=== PATIENT | female | born 1980 | race Caucasian/White ===

== ENCOUNTER 2020-04-16 16:53 | Inpatient (IN) | payer BC, MEDICAID ==
[~2020-04-16] VITALS: Ht 165.1 cm; Wt 83.5 kg
[2020-04-16 18:18] LABS: Basophils # (auto) 0 10 ^3/uL (0-0.2); Eosinophils # (auto) 0 10 ^3/uL (0-0.8); Hematocrit 25.2 % (36.0-46.0); Monocytes # (auto) 0.3 10 ^3/uL (0-1.3); Neutrophils # (auto) 2.4 10 ^3/uL (1.6-8.6)
[2020-04-16 18:20] LABS: Basophils % (auto) 0.8 % (0.0-2.0); Lymphocytes # (auto) 1.9 10 ^3/uL (0.4-5.4); Lymphocytes % (auto) 40.2 % (10.0-50.0); Mean Corpuscular Hemoglobin 16.7 pg (28.0-32.0); Mean Corpuscular Volume 59.8 fL (80.0-100.0); Monocytes % (auto) 6.9 % (0.0-12.0); Neutrophils % (auto) 51.1 % (37.0-80.0); Nucleated Red Blood Cells % 0.1 %; Platelet Count (auto) 292 10^3/uL (140-450); Red Blood Cells 4.21 10^6/uL (4.0-5.20); White Blood Cell 4.7 10^3/uL (4.4-10.8)
[2020-04-16 18:22] LABS: Red Cell Distribution Width 20.2 % (11.8-14.3)
[2020-04-16 18:29] LABS: Albumin 3.4 g/dL (3.4-5.0); BUN/Creatinine Ratio 15.5; Calcium 8.3 mg/dL (8.5-10.1); Potassium 3.3 mmol/L (3.5-5.1)
[2020-04-16 18:31] LABS: Bilirubin, Total 0.2 mg/dL (0.2-1.0); Total Protein 7.5 g/dL (6.4-8.2)
[2020-04-16] MEDS ORDERED: SODIUM CHLORIDE 0.9% 500 ML IV ONE (18:46)
[2020-04-16 19:27] LABS: Urine Bacteria NONE SEEN /hpf (None Seen); Urine Blood Negative /uL (Negative); Urine Mucus FEW (None Seen); Urine Specific Gravity 1.032 (1.001-1.035); Urine WBC 21 /hpf (0 - 5)
[2020-04-16 19:30] LABS: INR 0.96 (0.9-1.15); Partial Thromboplastin Time 23.5 sec (23.64-32.05)
[2020-04-16] MEDS ORDERED: NITROGLYCERIN 0.4 MG SL TAB SL PRN ×2 (19:30→21:15)
[2020-04-16] MEDS ORDERED: cefTRIAXone 1GM/50ML D5W 50 ML IV ONE (19:30)
[2020-04-16] MEDS ORDERED: MORPHINE SULF INJ 2 MG/ML SYRINGE 1ML IV PRN ×3 (19:30→21:15)
[2020-04-16] MEDS ORDERED: CALCIUM W/VIT D (600MG/400IU) TAB PO ONE (19:30)
[2020-04-16 20:17] LABS: Albumin 3.4 g/dL (3.4-5.0); BUN/Creatinine Ratio 17.6; Calcium 8.2 mg/dL (8.5-10.1); Potassium 3.5 mmol/L (3.5-5.1)
[2020-04-16 20:20] LABS: Bilirubin, Total 0.2 mg/dL (0.2-1.0); Total Protein 7.3 g/dL (6.4-8.2)
[2020-04-16] MEDS ORDERED: CEFTRIAXONE SODIUM 2 GM in D5W 5% 50 ML IV ONE (21:15)
[2020-04-16] MEDS ORDERED: ALUM & MAG HYDROX-SIMETH LIQ(MAALOX) 30 ML PO PRN (21:15)
[2020-04-16] MEDS ORDERED: HYDROcodone-ACET 5/325MG TAB PO PRN (21:15)
[2020-04-16] MEDS ORDERED: ONDANSETRON HCL 4 MG/2 ML VIAL IV PRN (21:15)
[2020-04-16] MEDS ORDERED: FERROUS SULFATE 325 MG TAB PO ONE (21:15)
[2020-04-16] MEDS ORDERED: LORazepam 0.5 MG TAB PO PRN (21:15)
[2020-04-16 21:30] VITALS: BP 135/88
[2020-04-16 21:47] LABS: Cholesterol 180 mg/dL (< 200)
[2020-04-16 21:50] LABS: HDL Cholesterol 56 mg/dL (40-59); LDL Cholesterol 101 mg/dL (< 100); Triglycerides 263 mg/dL (< 150)
[2020-04-16 22:23] VITALS: BP 135/88
[2020-04-16] MEDS: SOD CHL 0.9%/ KCL 40MEQ 1,000 ML IV SCH (23:14)
[2020-04-17] VITALS (7 sets, daily range): BP systolic 91–114; BP diastolic 48–61
[2020-04-17] MEDS: SOD CHL 0.9%/ KCL 40MEQ 1,000 ML IV SCH ×3 (03:50→21:40)
[2020-04-17 06:19] LABS: Basophils # (auto) 0 10 ^3/uL (0-0.2); Monocytes # (auto) 0.4 10 ^3/uL (0-1.3); Neutrophils # (auto) 2.7 10 ^3/uL (1.6-8.6)
[2020-04-17 06:21] LABS: Basophils % (auto) 0.4 % (0.0-2.0); Eosinophils # (auto) 0 10 ^3/uL (0-0.8); Eosinophils % (auto) 0.9 % (0.0-7.0); Lymphocytes % (auto) 38.6 % (10.0-50.0); Mean Corpuscular Hemoglobin 17.1 pg (28.0-32.0); Mean Corpuscular Hgb Conc. 28.5 g/dL (32.0-36.0); Monocytes % (auto) 7.3 % (0.0-12.0); Neutrophils % (auto) 52.8 % (37.0-80.0); Platelet Count (auto) 239 10^3/uL (140-450); Red Blood Cells 3.51 10^6/uL (4.0-5.20); White Blood Cell 5.2 10^3/uL (4.4-10.8)
[2020-04-17 06:26] LABS: Red Cell Distribution Width 20.6 % (11.8-14.3)
[2020-04-17 06:27] LABS: Potassium 3.8 mmol/L (3.5-5.1)
[2020-04-17 06:29] LABS: INR 1.05 (0.9-1.15)
[2020-04-17 06:33] LABS: Albumin 2.9 g/dL (3.4-5.0); BUN/Creatinine Ratio 20.6; Bilirubin, Total 0.2 mg/dL (0.2-1.0); Calcium 7.7 mg/dL (8.5-10.1); Magnesium 2.4 mg/dL (1.6-2.6); Total Protein 6.3 g/dL (6.4-8.2)
[2020-04-17] MEDS: FERROUS SULFATE 325 MG TAB PO SCH ×3 (08:40→17:23)
[2020-04-17] MEDS: CALCIUM W/VIT D (600MG/400IU) TAB PO SCH ×2 (08:40→17:22)
[2020-04-17] MEDS: cefTRIAXone 1GM/50ML D5W 50 ML IV SCH (08:41)
[2020-04-17] MEDS: PANTOPRAZOLE 40 MG TAB PO SCH (10:22)
[2020-04-17] MEDS ORDERED: METOCLOPRAMIDE HCL 5MG/ml INJ 2ml VIAL IV ONE (10:30)
[2020-04-17] MEDS ORDERED: SODIUM CHLORIDE LOCK 10 ML ONE (10:59)
[2020-04-17] MEDS ORDERED: diphenhdrAMINE HCL 50 MG/1 ML VL ONE (10:59)
[2020-04-17] MEDS ORDERED: LIDOCAINE VISCOUS 2% 15ML UD ONE (10:59)
[2020-04-17] MEDS: fentaNYL CITRATE 100 MCG/2 ML VL ONE ×2 (13:35→13:38)
[2020-04-17] MEDS: MIDAZOLAM HCL 5 MG/ML-1ML VIAL ONE ×3 (13:35→13:40)
[2020-04-17] MEDS ORDERED: Ensure HIGH Protein Chocolate 8oz Bottle PO SCH (18:00)
[2020-04-17 18:07] LABS: Urine Bacteria NONE SEEN /hpf (None Seen); Urine Blood Negative /uL (Negative); Urine Mucus FEW (None Seen); Urine Specific Gravity 1.012 (1.001-1.035); Urine WBC 5 /hpf (0 - 5)
[2020-04-17 18:08] LABS: Alcohol, Urine < 3.0 mg/dL (0-10); Amphetamine Screen, Urine NEGATIVE (NEGATIVE); Barbiturate Scree,Urine NEGATIVE (NEGATIVE); Benzodiazephine Screen, Urine POSITIVE (NEGATIVE); Cannabinoid Screen, Urine NEGATIVE (NEGATIVE); Cocaine Screen, Urine NEGATIVE (NEGATIVE); Opiate Scree,Urine NEGATIVE (NEGATIVE); Phencyclidine Screen, Urine NEGATIVE (NEGATIVE)
[2020-04-17 19:05] LABS: Hematocrit 26.4 % (36.0-46.0); Hemoglobin 7.6 g/dL (12.2-16.2)
[2020-04-18 05:00] VITALS: BP 93/50
[2020-04-18 06:10] LABS: Basophils # (auto) 0 10 ^3/uL (0-0.2); Eosinophils # (auto) 0.1 10 ^3/uL (0-0.8); Hemoglobin 7.6 g/dL (12.2-16.2); Monocytes # (auto) 0.3 10 ^3/uL (0-1.3); White Blood Cell 3.9 10^3/uL (4.4-10.8)
[2020-04-18 06:13] LABS: Basophils % (auto) 0.5 % (0.0-2.0); Eosinophils % (auto) 2.3 % (0.0-7.0); Hematocrit 25.8 % (36.0-46.0); Lymphocytes # (auto) 1.4 10 ^3/uL (0.4-5.4); Lymphocytes % (auto) 36.7 % (10.0-50.0); Mean Corpuscular Hemoglobin 18.5 pg (28.0-32.0); Mean Corpuscular Hgb Conc. 29.6 g/dL (32.0-36.0); Mean Corpuscular Volume 62.4 fL (80.0-100.0); Monocytes % (auto) 8.5 % (0.0-12.0); Nucleated Red Blood Cells % 0.1 %; Platelet Count (auto) 228 10^3/uL (140-450); Red Blood Cells 4.13 10^6/uL (4.0-5.20)
[2020-04-18 06:16] LABS: Red Cell Distribution Width 23.4 % (11.8-14.3)
[2020-04-18 06:26] LABS: Potassium 4.1 mmol/L (3.5-5.1)
[2020-04-18 06:33] LABS: BUN/Creatinine Ratio 9.3; Calcium 8.1 mg/dL (8.5-10.1)
[2020-04-18 09:00] VITALS: BP 112/68
[2020-04-18] MEDS: SOD CHL 0.9%/ KCL 40MEQ 1,000 ML IV SCH (09:12)
[2020-04-18] MEDS: CALCIUM W/VIT D (600MG/400IU) TAB PO SCH (09:16)
[2020-04-18] MEDS: cefTRIAXone 1GM/50ML D5W 50 ML IV SCH (09:16)
[2020-04-18] MEDS: FERROUS SULFATE 325 MG TAB PO SCH (09:16)
[2020-04-18] MEDS: PANTOPRAZOLE 40 MG TAB PO SCH (09:20)
[2020-04-18 14:00] VITALS: BP 115/71
[2020-04-18 14:12] VITALS: BP 112/68
== END 2020-04-18 16:35 | disposition home or self-care (01) | DRG 392 ==
LOC: ER 16:53 → TELE 16:54 → TELE-WESTW 21:15
PROVIDERS: ADMIT Hospitalist; ATTEND Internal Medicine
PROC: 0DB88ZX Excision of Small Intestine, Via Natural or Artificial Opening Endoscopic, Diagnostic (ICD-10-PCS; 2020-04-17)
PROC: 0DB68ZX Excision of Stomach, Via Natural or Artificial Opening Endoscopic, Diagnostic (ICD-10-PCS; principal; 2020-04-17 13:31)
DX: K29.00 Acute gastritis without bleeding (principal); N10 Acute pyelonephritis; E44.0 Moderate protein-calorie malnutrition; D50.9 Iron deficiency anemia, unspecified; N92.0 Excessive and frequent menstruation with regular cycle; E87.6 Hypokalemia; E83.51 Hypocalcemia; F17.210 Nicotine dependence, cigarettes, uncomplicated; K21.9 Gastro-esophageal reflux disease without esophagitis; E66.9 Obesity, unspecified; Z68.30 Body mass index [BMI] 30.0-30.9, adult; Z90.49 Acquired absence of other specified parts of digestive tract
CPT/HCPCS: 36415; 70450; 76856; 80048; 80053; 80061; 80307; 81001; 81025; 82378; 82962; 83036; 83735; 84100; 84443; 85014; 85018; 85025; 85610; 85730; 86850; 86900; 86901; 86920; 87086; G0378; J0696; J2250; J7060

== ENCOUNTER → 2020-06-02 | Outpatient (CLI) | payer BC, MEDICAID ==
[2020-06-02 09:05] LABS: Basophils # (auto) 0 10 ^3/uL (0-0.2); Lymphocytes % (auto) 42.4 % (10.0-50.0); Mean Corpuscular Hemoglobin 18.3 pg (28.0-32.0); Monocytes # (auto) 0.2 10 ^3/uL (0-1.3); Neutrophils # (auto) 1.3 10 ^3/uL (1.6-8.6); White Blood Cell 2.7 10^3/uL (4.4-10.8)
[2020-06-02 09:07] LABS: Basophils % (auto) 1.1 % (0.0-2.0); Eosinophils # (auto) 0 10 ^3/uL (0-0.8); Eosinophils % (auto) 0.9 % (0.0-7.0); Hematocrit 27.9 % (36.0-46.0); Hemoglobin 8.2 g/dL (12.2-16.2); Lymphocytes # (auto) 1.2 10 ^3/uL (0.4-5.4); Mean Corpuscular Hgb Conc. 29.2 g/dL (32.0-36.0); Mean Corpuscular Volume 62.8 fL (80.0-100.0); Monocytes % (auto) 6.7 % (0.0-12.0); Neutrophils % (auto) 48.9 % (37.0-80.0); Nucleated Red Blood Cells % 0.1 %; Platelet Count (auto) 265 10^3/uL (140-450); Red Blood Cells 4.45 10^6/uL (4.0-5.20)
[2020-06-02 09:10] LABS: Red Cell Distribution Width 23.6 % (11.8-14.3)
[2020-06-02 09:11] LABS: Urine Bacteria NONE SEEN /hpf (None Seen); Urine Blood Negative /uL (Negative); Urine Mucus FEW (None Seen); Urine Specific Gravity 1.028 (1.001-1.035); Urine WBC 1 /hpf (0 - 5)
[2020-06-02 09:22] LABS: Albumin 3.5 g/dL (3.4-5.0); Calcium 8.5 mg/dL (8.5-10.1); Potassium 3.4 mmol/L (3.5-5.1)
[2020-06-02 09:27] LABS: Bilirubin, Total 0.2 mg/dL (0.2-1.0); Total Protein 7.5 g/dL (6.4-8.2)
[2020-06-02 09:36] LABS: Folate (Folic Acid) 10.19 ng/mL (5.38-24)
== END | disposition home or self-care (01) ==
LOC: LAB 08:45
PROVIDERS: ATTEND Nurse Practitioner
DX: E78.5 Hyperlipidemia, unspecified (principal); I10 Essential (primary) hypertension
CPT/HCPCS: 36415; 80053; 80061; 81001; 82607; 82746; 83036; 84443; 85025

== ENCOUNTER → 2020-07-10 | Outpatient (CLI) | payer BC, MEDICAID ==
[2020-07-10 11:25] LABS: Hemoglobin 8.7 g/dL (12.2-16.2); Mean Corpuscular Hemoglobin 19.3 pg (28.0-32.0)
[2020-07-10 11:27] LABS: Hematocrit 29.3 % (36.0-46.0); Mean Corpuscular Hgb Conc. 29.6 g/dL (32.0-36.0); Mean Corpuscular Volume 65.2 fL (80.0-100.0); Platelet Count (auto) 260 10^3/uL (140-450); Red Blood Cells 4.49 10^6/uL (4.0-5.20); White Blood Cell 3.8 10^3/uL (4.4-10.8)
[2020-07-10 12:26] LABS: Basophils % (manual) 0 (0.0-2.0); Blast Cells 0; Metamyelocytes % 0; Myelocytes % 0; Promyelocytes % 0; Reactive Lymphocytes 0
[2020-07-10 12:27] LABS: Potassium 3.2 mmol/L (3.5-5.1)
[2020-07-10 12:29] LABS: Band Neutrophils % (manual) 2; Eosinophils % (manual) 1 (0-7); Lymphocytes % (manual) 42 (10.0-50.0); Monocytes % (manual) 4 (0-12)
[2020-07-10 12:54] LABS: Albumin 3.5 g/dL (3.4-5.0); BUN/Creatinine Ratio 13.5; Bilirubin, Total 0.2 mg/dL (0.2-1.0); Calcium 8.7 mg/dL (8.5-10.1); Total Protein 7.3 g/dL (6.4-8.2)
[2020-07-10 14:10] LABS: % Iron Saturation 4.3 % (15-50)
== END | disposition home or self-care (01) ==
LOC: LAB 10:46
PROVIDERS: ATTEND Internal Medicine Gastroenterology
DX: D64.9 Anemia, unspecified (principal)
CPT/HCPCS: 36415; 80053; 82378; 83540; 83550; 85007; 85025; 85027; 86677

== ENCOUNTER 2020-08-07 09:56 | Day surgery (SDC) | payer BC, MEDICAID ==
[2020-08-04 15:20] LABS: Basophils # (auto) 0 10 ^3/uL (0-0.2); Basophils % (auto) 0.3 % (0.0-2.0); Eosinophils # (auto) 0.1 10 ^3/uL (0-0.8); Hemoglobin 8.8 g/dL (12.2-16.2); Lymphocytes # (auto) 1.5 10 ^3/uL (0.4-5.4); Monocytes # (auto) 0.4 10 ^3/uL (0-1.3); Neutrophils # (auto) 2.6 10 ^3/uL (1.6-8.6)
[2020-08-04 15:22] LABS: Eosinophils % (auto) 1.6 % (0.0-7.0); Hematocrit 29.7 % (36.0-46.0); Mean Corpuscular Hemoglobin 19.5 pg (28.0-32.0); Mean Corpuscular Hgb Conc. 29.7 g/dL (32.0-36.0); Mean Corpuscular Volume 65.5 fL (80.0-100.0); Monocytes % (auto) 8.6 % (0.0-12.0); Neutrophils % (auto) 56.5 % (37.0-80.0); Nucleated Red Blood Cells % 0.1 %; Platelet Count (auto) 281 10^3/uL (140-450); Red Blood Cells 4.53 10^6/uL (4.0-5.20); White Blood Cell 4.6 10^3/uL (4.4-10.8)
[2020-08-04 15:36] LABS: Partial Thromboplastin Time 24.8 sec (23.0-31.2)
[2020-08-04 15:41] LABS: Red Cell Distribution Width 21.4 % (11.8-14.3)
[~2020-08-07] VITALS: Ht 162.6 cm; Wt 77.1 kg
[2020-08-07] MEDS ORDERED: SODIUM CHLORIDE LOCK 10 ML ONE (10:39)
[2020-08-07] MEDS: fentaNYL CITRATE 100 MCG/2 ML VL ONE ×2 (12:06→12:08)
[2020-08-07] MEDS: diphenhdrAMINE HCL 50 MG/1 ML VL ONE ×2 (12:06→12:11)
[2020-08-07] MEDS: MIDAZOLAM HCL 5 MG/ML-1ML VIAL ONE ×3 (12:06→12:11)
[2020-08-07 12:45] VITALS: BP 109/64
== END 2020-08-07 12:55 | disposition home or self-care (01) ==
LOC: GI 09:56
PROVIDERS: ATTEND Internal Medicine Gastroenterology
DX: D50.9 Iron deficiency anemia, unspecified (principal); K64.8 Other hemorrhoids; K63.89 Other specified diseases of intestine; I20.9 Angina pectoris, unspecified; E66.9 Obesity, unspecified; Z68.29 Body mass index [BMI] 29.0-29.9, adult; Z79.899 Other long term (current) drug therapy; Z20.828 Contact with and (suspected) exposure to other viral communicable diseases
CPT/HCPCS: 36415; 45380; 84702; 85025; 85610; 85730; 88305; J1200; J2250; J3010; J7030; U0003; 99152

== ENCOUNTER 2020-08-23 18:29 | Emergency (ER) | payer BC, MEDICAID ==
[~2020-08-23] VITALS: Ht 162.6 cm; Wt 77.1 kg
[2020-08-23 23:07] LABS: Basophils # (auto) 0 10 ^3/uL (0-0.2); Hematocrit 28.8 % (36.0-46.0); Hemoglobin 8.7 g/dL (12.2-16.2); Mean Corpuscular Hgb Conc. 30.2 g/dL (32.0-36.0); Monocytes # (auto) 0.4 10 ^3/uL (0-1.3); Nucleated Red Blood Cells % 0.1 %
[2020-08-23 23:11] LABS: Basophils % (auto) 0.2 % (0.0-2.0); Eosinophils # (auto) 0.1 10 ^3/uL (0-0.8); Eosinophils % (auto) 1.1 % (0.0-7.0); Lymphocytes % (auto) 37.1 % (10.0-50.0); Mean Corpuscular Hemoglobin 19.2 pg (28.0-32.0); Mean Corpuscular Volume 63.6 fL (80.0-100.0); Monocytes % (auto) 7.2 % (0.0-12.0); Neutrophils % (auto) 54.4 % (37.0-80.0); Platelet Count (auto) 342 10^3/uL (140-450); Red Blood Cells 4.53 10^6/uL (4.0-5.20); White Blood Cell 5.5 10^3/uL (4.4-10.8)
[2020-08-23 23:28] LABS: Alanine Aminotransferase 16 U/L (13-56); Albumin 3.6 g/dL (3.4-5.0); Anion Gap 7 (5-15); Aspartate Aminotransferase 10 U/L (15-37); BUN/Creatinine Ratio 18.9; Blood Urea Nitrogen 10 mg/dL (7-18); Carbon Dioxide 24 mmol/L (21-32); Chloride 109 mmol/L (98-107); GFR African American 163 mL/min; GFR Non-African American 135 mL/min; Glucose 81 mg/dL (74-106); Potassium 3.6 mmol/L (3.5-5.1); Sodium 140 mmol/L (136-145)
[2020-08-23 23:30] LABS: Red Cell Distribution Width 20.4 % (11.8-14.3)
[2020-08-23 23:32] LABS: Alkaline Phosphatase 104 U/L (45-117); Bilirubin, Total 0.2 mg/dL (0.2-1.0); Total Protein 7.7 g/dL (6.4-8.2)
[2020-08-23 23:36] LABS: INR 0.98 (0.9-1.15); Partial Thromboplastin Time 23.6 sec (23.0-31.2)
[2020-08-24 00:30] VITALS: BP 115/78
== END 2020-08-24 01:00 | disposition home or self-care (01) ==
LOC: ER 18:29
DX: J06.9 Acute upper respiratory infection, unspecified (principal); Z20.828 Contact with and (suspected) exposure to other viral communicable diseases; F17.210 Nicotine dependence, cigarettes, uncomplicated
CPT/HCPCS: 36415; 71045; 80053; 84484; 85025; 85610; 85730; 99284; J7030

== ENCOUNTER → 2020-09-11 | Day surgery (SDC) | payer BC, MEDICAID ==
[2020-08-10 11:16] LABS: Basophils # (auto) 0 10 ^3/uL (0-0.2); Eosinophils # (auto) 0.1 10 ^3/uL (0-0.8); Hemoglobin 8.5 g/dL (12.2-16.2); Lymphocytes # (auto) 0.8 10 ^3/uL (0.4-5.4); Mean Corpuscular Hemoglobin 19.6 pg (28.0-32.0); Monocytes # (auto) 0.3 10 ^3/uL (0-1.3); Monocytes % (auto) 9.4 % (0.0-12.0)
[2020-08-10 11:18] LABS: Basophils % (auto) 0.5 % (0.0-2.0); Eosinophils % (auto) 2.1 % (0.0-7.0); Hematocrit 28.3 % (36.0-46.0); Lymphocytes % (auto) 25.3 % (10.0-50.0); Mean Corpuscular Volume 65.2 fL (80.0-100.0); Neutrophils % (auto) 62.7 % (37.0-80.0); Nucleated Red Blood Cells % 0.1 %; Platelet Count (auto) 277 10^3/uL (140-450); Red Blood Cells 4.34 10^6/uL (4.0-5.20); White Blood Cell 3.1 10^3/uL (4.4-10.8)
[2020-08-10 11:19] LABS: Urine Bacteria FEW /hpf (None Seen); Urine Blood TRACE /uL (Negative); Urine Mucus FEW (None Seen); Urine Specific Gravity 1.029 (1.001-1.035); Urine WBC 4 /hpf (0 - 5)
[2020-08-10 11:22] LABS: Red Cell Distribution Width 21.1 % (11.8-14.3)
[2020-08-10 11:30] LABS: Partial Thromboplastin Time 23.6 sec (23.0-31.2)
[2020-08-10 11:45] LABS: Albumin 3.4 g/dL (3.4-5.0); Calcium 8.8 mg/dL (8.5-10.1); Potassium 3.2 mmol/L (3.5-5.1)
[2020-08-10 11:48] LABS: BUN/Creatinine Ratio 10.5; Bilirubin, Total 0.2 mg/dL (0.2-1.0); Total Protein 7.6 g/dL (6.4-8.2)
[2020-09-07 14:45] LABS: Basophils # (auto) 0 10 ^3/uL (0-0.2); Hematocrit 24.5 % (36.0-46.0); Monocytes # (auto) 0.3 10 ^3/uL (0-1.3); Neutrophils # (auto) 2.2 10 ^3/uL (1.6-8.6); White Blood Cell 4.1 10^3/uL (4.4-10.8)
[2020-09-07 14:47] LABS: Basophils % (auto) 0.4 % (0.0-2.0); Eosinophils # (auto) 0 10 ^3/uL (0-0.8); Eosinophils % (auto) 1.1 % (0.0-7.0); Hemoglobin 7.5 g/dL (12.2-16.2); Lymphocytes # (auto) 1.6 10 ^3/uL (0.4-5.4); Lymphocytes % (auto) 37.7 % (10.0-50.0); Mean Corpuscular Hemoglobin 19.9 pg (28.0-32.0); Mean Corpuscular Hgb Conc. 30.6 g/dL (32.0-36.0); Monocytes % (auto) 6.5 % (0.0-12.0); Neutrophils % (auto) 54.3 % (37.0-80.0); Nucleated Red Blood Cells % 0.1 %; Platelet Count (auto) 288 10^3/uL (140-450); Red Blood Cells 3.76 10^6/uL (4.0-5.20)
[2020-09-07 15:02] LABS: INR 0.99 (0.9-1.15); Partial Thromboplastin Time 22.8 sec (23.0-31.2)
[2020-09-07 15:06] LABS: Urine Bacteria NONE SEEN /hpf (None Seen); Urine Blood 1+ /uL (Negative); Urine Hyaline Cast FEW /lpf (0 - 2); Urine Mucus FEW (None Seen); Urine Specific Gravity 1.032 (1.001-1.035); Urine WBC 11 /hpf (0 - 5)
[2020-09-07 15:13] LABS: Red Cell Distribution Width 20.1 % (11.8-14.3)
[2020-09-07 15:47] LABS: Albumin 3.5 g/dL (3.4-5.0); Calcium 8.4 mg/dL (8.5-10.1); Potassium 3.3 mmol/L (3.5-5.1)
[2020-09-07 15:51] LABS: Bilirubin, Total 0.1 mg/dL (0.2-1.0); Total Protein 7.2 g/dL (6.4-8.2)
[~2020-09-11] VITALS: Ht 162.6 cm; Wt 79.4 kg
[~2020-09-11] MED LIST: AMOX500C2 PO; HYDROmorphone HCL 2 MG/ML VL IV PRN; IBUP800T24 PO; LACTATED RINGER'S 1,000 ML IV SCH; MEPERIDINE HCL (25 MG/ML) 1ML VIAL ONE; METOCLOPRAMIDE HCL 5MG/ml INJ 2ml VIAL IV PRN; MIDAZOLAM HCL 1MG/1ML-2 ML VIAL ONE; MORPHINE SULFATE 4 MG/ML SYR/VIAL IV PRN; ONDANSETRON HCL 4 MG/2 ML VIAL IV PRN; ONDANSETRON HCL 4 MG/2 ML VIAL ONE; PROPOFOL 10 MG/ML 20 ML IV ONE; SILVER SULFADIAZINE 1 % TOPICAL CREAM 50GM TOP ONE; SODIUM CHLORIDE LOCK 10 ML ONE; ceFAZolin 1GM/50ML 50 ML IV ONE; fentaNYL CITRATE 100 MCG/2 ML VL ONE
[2020-09-11 08:56] LABS: Basophils # (auto) 0 10 ^3/uL (0-0.2); Eosinophils # (auto) 0 10 ^3/uL (0-0.8); Hemoglobin 7.5 g/dL (12.2-16.2); Mean Corpuscular Hemoglobin 19.3 pg (28.0-32.0); Neutrophils # (auto) 1.6 10 ^3/uL (1.6-8.6); Platelet Count (auto) 274 10^3/uL (140-450); White Blood Cell 2.9 10^3/uL (4.4-10.8)
[2020-09-11 08:59] LABS: Basophils % (auto) 0.3 % (0.0-2.0); Eosinophils % (auto) 1.7 % (0.0-7.0); Hematocrit 25.1 % (36.0-46.0); Lymphocytes % (auto) 33.6 % (10.0-50.0); Mean Corpuscular Hgb Conc. 29.9 g/dL (32.0-36.0); Mean Corpuscular Volume 64.6 fL (80.0-100.0); Monocytes # (auto) 0.3 10 ^3/uL (0-1.3); Monocytes % (auto) 8.7 % (0.0-12.0); Neutrophils % (auto) 55.7 % (37.0-80.0); Red Blood Cells 3.89 10^6/uL (4.0-5.20)
[2020-09-11 13:04] LABS: Basophils # (auto) 0 10 ^3/uL (0-0.2); Eosinophils # (auto) 0 10 ^3/uL (0-0.8); Mean Corpuscular Hemoglobin 20.1 pg (28.0-32.0); Monocytes # (auto) 0.1 10 ^3/uL (0-1.3); Neutrophils # (auto) 1.6 10 ^3/uL (1.6-8.6); Platelet Count (auto) 245 10^3/uL (140-450); Red Blood Cells 3.98 10^6/uL (4.0-5.20); White Blood Cell 2.8 10^3/uL (4.4-10.8)
[2020-09-11 13:08] LABS: Basophils % (auto) 0.5 % (0.0-2.0); Eosinophils % (auto) 1.2 % (0.0-7.0); Hematocrit 26.3 % (36.0-46.0); Lymphocytes % (auto) 35.9 % (10.0-50.0); Mean Corpuscular Hgb Conc. 30.4 g/dL (32.0-36.0); Mean Corpuscular Volume 66.1 fL (80.0-100.0); Monocytes % (auto) 4.9 % (0.0-12.0); Neutrophils % (auto) 57.5 % (37.0-80.0); Nucleated Red Blood Cells % 0.3 %; Red Cell Distribution Width 19.5 % (11.8-14.3)
[2020-09-11 14:30] VITALS: BP 126/87
== END | disposition home or self-care (01) ==
LOC: SUR 07:32
PROVIDERS: ATTEND Specialist
DX: N92.0 Excessive and frequent menstruation with regular cycle (principal); D28.0 Benign neoplasm of vulva; D25.9 Leiomyoma of uterus, unspecified; D64.9 Anemia, unspecified; E66.9 Obesity, unspecified; I20.9 Angina pectoris, unspecified; Z90.49 Acquired absence of other specified parts of digestive tract; Z79.899 Other long term (current) drug therapy; Z98.890 Other specified postprocedural states; Z20.828 Contact with and (suspected) exposure to other viral communicable diseases; Z68.30 Body mass index [BMI] 30.0-30.9, adult
CPT/HCPCS: 11421; 36415; 36430; 58558; 80053; 81001; 84702; 85025; 85610; 85730; 86850; 86900; 86901; 86920; 87086; 87426; 88305; 88342; J0690; J2175; J2250; J2405; J2704; J3010; P9016; U0003

== ENCOUNTER → 2020-11-05 | Outpatient (CLI) | payer BC, MEDICAID ==
[~2020-11-05] MED LIST changes: -HYDROmorphone HCL 2 MG/ML VL IV PRN; -LACTATED RINGER'S 1,000 ML IV SCH; -MEPERIDINE HCL (25 MG/ML) 1ML VIAL ONE; -METOCLOPRAMIDE HCL 5MG/ml INJ 2ml VIAL IV PRN; -MIDAZOLAM HCL 1MG/1ML-2 ML VIAL ONE; -MORPHINE SULFATE 4 MG/ML SYR/VIAL IV PRN; -ONDANSETRON HCL 4 MG/2 ML VIAL IV PRN; -ONDANSETRON HCL 4 MG/2 ML VIAL ONE; -PROPOFOL 10 MG/ML 20 ML IV ONE; -SILVER SULFADIAZINE 1 % TOPICAL CREAM 50GM TOP ONE; -SODIUM CHLORIDE LOCK 10 ML ONE; -ceFAZolin 1GM/50ML 50 ML IV ONE; -fentaNYL CITRATE 100 MCG/2 ML VL ONE
[2020-11-05 12:30] LABS: Basophils # (auto) 0 10 ^3/uL (0-0.2); Basophils % (auto) 0.4 % (0.0-2.0); Eosinophils # (auto) 0 10 ^3/uL (0-0.8); Eosinophils % (auto) 1.1 % (0.0-7.0); Hematocrit 28.9 % (36.0-46.0); Hemoglobin 8.8 g/dL (12.2-16.2); Lymphocytes # (auto) 1.3 10 ^3/uL (0.4-5.4); Mean Corpuscular Hemoglobin 20.1 pg (28.0-32.0); Mean Corpuscular Hgb Conc. 30.4 g/dL (32.0-36.0); Mean Corpuscular Volume 66.2 fL (80.0-100.0); Monocytes # (auto) 0.3 10 ^3/uL (0-1.3); Monocytes % (auto) 8.5 % (0.0-12.0); Nucleated Red Blood Cells % 0.1 %; Platelet Count (auto) 298 10^3/uL (140-450); Red Blood Cells 4.36 10^6/uL (4.0-5.20); Red Cell Distribution Width 20.4 % (11.8-14.3); White Blood Cell 3.6 10^3/uL (4.4-10.8)
== END | disposition home or self-care (01) ==
LOC: LAB 12:04
PROVIDERS: ATTEND Specialist
DX: N92.0 Excessive and frequent menstruation with regular cycle (principal)
CPT/HCPCS: 36415; 84443; 85025

== ENCOUNTER → 2021-02-15 | Outpatient (CLI) | payer BC, MEDICAID ==
[~2021-02-15] MED LIST changes: +FERR-20 PO; +IBUP600T27 PO; -IBUP800T24 PO; +IBUP800T27 PO; +[UNRECOGNIZED DRUG - CODE] PO
[2021-02-15 12:49] LABS: Urine WBC None Seen /hpf (0 - 5)
[2021-02-15 13:11] LABS: Basophils # (auto) 0 10 ^3/uL (0-0.2); INR 0.98 (0.9-1.15); Monocytes # (auto) 0.3 10 ^3/uL (0-1.3); Neutrophils # (auto) 2.3 10 ^3/uL (1.6-8.6); Partial Thromboplastin Time 25.1 sec (23.0-31.2); White Blood Cell 4.4 10^3/uL (4.4-10.8)
[2021-02-15 13:18] LABS: Basophils % (auto) 0.7 % (0.0-2.0); Eosinophils # (auto) 0 10 ^3/uL (0-0.8); Eosinophils % (auto) 1.1 % (0.0-7.0); Hematocrit 29.5 % (36.0-46.0); Lymphocytes # (auto) 1.7 10 ^3/uL (0.4-5.4); Lymphocytes % (auto) 38.9 % (10.0-50.0); Mean Corpuscular Hemoglobin 20.4 pg (28.0-32.0); Mean Corpuscular Hgb Conc. 30.7 g/dL (32.0-36.0); Mean Corpuscular Volume 66.6 fL (80.0-100.0); Monocytes % (auto) 6.9 % (0.0-12.0); Neutrophils % (auto) 52.4 % (37.0-80.0); Nucleated Red Blood Cells % 0.1 %; Platelet Count (auto) 241 10^3/uL (140-450); Red Blood Cells 4.42 10^6/uL (4.0-5.20)
[2021-02-15 13:21] LABS: Red Cell Distribution Width 24.5 % (11.8-14.3)
[2021-02-15 13:24] LABS: Urine Amorphous Crystal MOD /hpf (None Seen); Urine Bacteria NONE SEEN /hpf (None Seen); Urine Blood Negative /uL (Negative); Urine Mucus FEW (None Seen); Urine Specific Gravity 1.026 (1.001-1.035)
[2021-02-15 13:46] LABS: Potassium 3.9 mmol/L (3.5-5.1)
[2021-02-15 13:54] LABS: Albumin 3.5 g/dL (3.4-5.0); BUN/Creatinine Ratio 22.9; Bilirubin, Total 0.2 mg/dL (0.2-1.0); Calcium 8.6 mg/dL (8.5-10.1); Total Protein 7.4 g/dL (6.4-8.2)
== END | disposition home or self-care (01) ==
LOC: LAB 11:42
PROVIDERS: ATTEND Specialist
DX: Z01.818 Encounter for other preprocedural examination (principal)
CPT/HCPCS: 36415; 80053; 81001; 84702; 85025; 85610; 85730; 86850; 86900; 86901

== ENCOUNTER → 2021-02-17 | Outpatient (CLI) | payer BC, MEDICAID ==
[~2021-02-17] MED LIST changes: -AMOX500C2 PO; -IBUP800T27 PO
== END | disposition home or self-care (01) ==
LOC: LAB 11:43
PROVIDERS: ATTEND Specialist
DX: Z01.812 Encounter for preprocedural laboratory examination (principal)
CPT/HCPCS: 36415; 81025; 84702

== ENCOUNTER 2021-02-19 06:23 | Inpatient (IN) | payer BC, MEDICAID ==
[~2021-02-19] VITALS: Ht 160 cm; Wt 87.6 kg
[2021-02-19] MEDS ORDERED: ceFAZolin 1GM/50ML 100 ML IV ONE (07:17)
[2021-02-19] MEDS ORDERED: MIDAZOLAM HCL 1MG/1ML-2 ML VIAL ONE (07:29)
[2021-02-19] MEDS ORDERED: fentaNYL CITRATE 100 MCG/2 ML VL ONE (07:29)
[2021-02-19] MEDS ORDERED: MEPERIDINE HCL (50 MG/ML) 1 ML VIAL ONE (07:29)
[2021-02-19] MEDS ORDERED: diphenhdrAMINE HCL 50 MG/1 ML VL ONE (07:30)
[2021-02-19] MEDS ORDERED: DexAMETHasone SOD PHOS 10MG/1ML VIAL INJ ONE (07:30)
[2021-02-19] MEDS ORDERED: SUCCINYLCHOLINE CHLORIDE 20 MG/ML 10ML VIAL IV ONE (07:31)
[2021-02-19] MEDS ORDERED: MEPERIDINE HCL (25 MG/ML) 1ML VIAL ONE ×2 (08:20→08:54)
[2021-02-19] MEDS ORDERED: HYDROmorphone HCL 2 MG/ML VL ONE (10:12)
[2021-02-19] MEDS ORDERED: ONDANSETRON HCL 4 MG/2 ML VIAL IV PRN (10:15)
[2021-02-19] MEDS ORDERED: LABETALOL HCL 5 MG/ML 4ML SYRINGE IV PRN (10:15)
[2021-02-19] MEDS ORDERED: MIDAZOLAM HCL 1MG/1ML-2 ML VIAL IV PRN (10:15)
[2021-02-19] MEDS ORDERED: ePHEDrine SULFATE 50 MG/ML AMP IV PRN (10:15)
[2021-02-19] MEDS ORDERED: ACETAMINOPHEN IV 100 ML IV PRN (10:15)
[2021-02-19] MEDS ORDERED: MORPHINE SULF INJ 2 MG/ML SYRINGE 1ML IV PRN (10:15)
[2021-02-19] MEDS ORDERED: HYDROmorphone HCL 2 MG/ML VL IV PRN (10:15)
[2021-02-19] MEDS: HYDROmorphone HCL 2 MG/ML VL IV PRN ×3 (13:21→19:55)
[2021-02-19] MEDS: ceFAZolin 1GM/50ML 50 ML IV SCH ×2 (13:23→22:00)
[2021-02-19 13:30] VITALS: BP 119/82
[2021-02-19] MEDS: SODIUM CHLORIDE 0.9% 1,000 ML IV SCH ×2 (15:46→18:15)
[2021-02-19 17:02] VITALS: BP 103/64
[2021-02-19] MEDS: ACETAMINOPHEN IV 1000 MG/100ML (10MG/ML) IV PRN (17:41)
[2021-02-19] MEDS ORDERED: KETOROLAC TROMETH 30 MG/ML 1ML VIAL IV SCH (18:00)
[2021-02-19] MEDS: ONDANSETRON HCL 4 MG/2 ML VIAL IV PRN (20:24)
[2021-02-19 22:00] VITALS: BP 98/56
[2021-02-19] MEDS: KETOROLAC TROMETH 30 MG/ML 1ML VIAL IV SCH (22:45)
[2021-02-20] VITALS (10 sets, daily range): BP systolic 91–142; BP diastolic 56–64
[2021-02-20] MEDS: HYDROmorphone HCL 2 MG/ML VL IV PRN ×8 (00:37→17:30)
[2021-02-20] MEDS: SODIUM CHLORIDE 0.9% 1,000 ML IV SCH ×3 (01:31→11:24)
[2021-02-20] MEDS: ONDANSETRON HCL 4 MG/2 ML VIAL IV PRN ×3 (04:51→23:45)
[2021-02-20] MEDS: ACETAMINOPHEN IV 1000 MG/100ML (10MG/ML) IV PRN (06:02)
[2021-02-20] MEDS: ceFAZolin 1GM/50ML 50 ML IV SCH ×3 (06:26→23:45)
[2021-02-20] MEDS: KETOROLAC TROMETH 30 MG/ML 1ML VIAL IV SCH ×4 (06:26→18:43)
[2021-02-20 06:49] LABS: Basophils # (auto) 0 10 ^3/uL (0-0.2); Eosinophils # (auto) 0 10 ^3/uL (0-0.8); Hematocrit 21.7 % (36.0-46.0); Monocytes # (auto) 0.7 10 ^3/uL (0-1.3); Platelet Count (auto) 215 10^3/uL (140-450); Red Blood Cells 3.24 10^6/uL (4.0-5.20); White Blood Cell 8.2 10^3/uL (4.4-10.8)
[2021-02-20 06:51] LABS: Lymphocytes # (auto) 1.2 10 ^3/uL (0.4-5.4); Lymphocytes % (auto) 14.2 % (10.0-50.0); Mean Corpuscular Hemoglobin 20.7 pg (28.0-32.0); Mean Corpuscular Hgb Conc. 30.9 g/dL (32.0-36.0); Monocytes % (auto) 8.7 % (0.0-12.0); Neutrophils # (auto) 6.3 10 ^3/uL (1.6-8.6); Neutrophils % (auto) 77.1 % (37.0-80.0)
[2021-02-20 07:01] LABS: Hemoglobin 6.7 g/dL (12.2-16.2); Red Cell Distribution Width 24.5 % (11.8-14.3)
[2021-02-20 07:06] LABS: Calcium 7.8 mg/dL (8.5-10.1); Potassium 3.7 mmol/L (3.5-5.1)
[2021-02-20 07:11] LABS: Albumin 2.9 g/dL (3.4-5.0); BUN/Creatinine Ratio 14.3; Bilirubin, Total 0.3 mg/dL (0.2-1.0); Total Protein 6.2 g/dL (6.4-8.2)
[2021-02-20] MEDS ORDERED: SIMETHICONE 80 MG CHEWABLE TABLET PO PRN (11:00)
[2021-02-20] MEDS ORDERED: ACETAMINOPHEN IV 1000 MG/100ML (10MG/ML) IV ONE (16:00)
[2021-02-20] MEDS: diphenhdrAMINE HCL 25 MG CAP PO PRN ×2 (16:34→22:00)
[2021-02-20 19:00] LABS: Hematocrit 20.6 % (36.0-46.0)
[2021-02-20 19:14] LABS: Hemoglobin 6.4 g/dL (12.2-16.2)
[2021-02-20] MEDS: IBUPROFEN 800 MG TAB PO SCH ×2 (20:00→22:00)
[2021-02-20] MEDS: HYDROcodone-ACET 10/325MG TAB PO PRN (20:20)
[2021-02-21] VITALS (8 sets, daily range): BP systolic 93–147; BP diastolic 52–81
[2021-02-21] MEDS: KETOROLAC TROMETH 30 MG/ML 1ML VIAL IV SCH
[2021-02-21] MEDS: SODIUM CHLORIDE 0.9% 1,000 ML IV SCH ×2 (00:30→07:00)
[2021-02-21] MEDS: HYDROcodone-ACET 10/325MG TAB PO PRN ×6 (00:30→23:40)
[2021-02-21] MEDS: ceFAZolin 1GM/50ML 50 ML IV SCH (06:00)
[2021-02-21] MEDS: IBUPROFEN 800 MG TAB PO SCH ×3 (06:00→21:19)
[2021-02-21 07:29] LABS: Basophils # (auto) 0 10 ^3/uL (0-0.2); Eosinophils # (auto) 0.1 10 ^3/uL (0-0.8); Eosinophils % (auto) 1.1 % (0.0-7.0); Hemoglobin 7.1 g/dL (12.2-16.2); Lymphocytes # (auto) 1.7 10 ^3/uL (0.4-5.4); Monocytes # (auto) 0.4 10 ^3/uL (0-1.3); Monocytes % (auto) 7.5 % (0.0-12.0)
[2021-02-21 07:31] LABS: Basophils % (auto) 0.5 % (0.0-2.0); Hematocrit 22.1 % (36.0-46.0); Lymphocytes % (auto) 28.8 % (10.0-50.0); Mean Corpuscular Hemoglobin 22.3 pg (28.0-32.0); Mean Corpuscular Hgb Conc. 32.1 g/dL (32.0-36.0); Mean Corpuscular Volume 69.5 fL (80.0-100.0); Neutrophils # (auto) 3.6 10 ^3/uL (1.6-8.6); Neutrophils % (auto) 62.1 % (37.0-80.0); Platelet Count (auto) 181 10^3/uL (140-450); Red Blood Cells 3.19 10^6/uL (4.0-5.20); White Blood Cell 5.8 10^3/uL (4.4-10.8)
[2021-02-21 07:34] LABS: Red Cell Distribution Width 25.2 % (11.8-14.3)
[2021-02-21 07:47] LABS: INR 1.02 (0.9-1.15); Partial Thromboplastin Time 26.3 sec (23.0-31.2)
[2021-02-21 07:49] LABS: % Iron Saturation 8.3 % (15-50)
[2021-02-21 08:07] LABS: Magnesium 1.7 mg/dL (1.6-2.6); Phosphorus 2.7 mg/dL (2.5-4.90)
[2021-02-21] MEDS ORDERED: DOCUSATE SOD 100 MG CAP PO PRN (13:45)
[2021-02-22] MEDS: HYDROcodone-ACET 10/325MG TAB PO PRN ×4 (04:00→16:11)
[2021-02-22 04:46] VITALS: BP 109/66
[2021-02-22] MEDS: IBUPROFEN 800 MG TAB PO SCH ×2 (05:36→14:36)
[2021-02-22 08:25] LABS: Basophils # (auto) 0 10 ^3/uL (0-0.2); Basophils % (auto) 0.2 % (0.0-2.0); Eosinophils # (auto) 0.1 10 ^3/uL (0-0.8); Monocytes # (auto) 0.5 10 ^3/uL (0-1.3); Neutrophils # (auto) 5.4 10 ^3/uL (1.6-8.6); Nucleated Red Blood Cells % 0.1 %
[2021-02-22 08:29] LABS: Eosinophils % (auto) 1.1 % (0.0-7.0); Hematocrit 26.7 % (36.0-46.0); Hemoglobin 8.9 g/dL (12.2-16.2); Lymphocytes # (auto) 0.5 10 ^3/uL (0.4-5.4); Lymphocytes % (auto) 8.2 % (10.0-50.0); Mean Corpuscular Hemoglobin 23.9 pg (28.0-32.0); Mean Corpuscular Hgb Conc. 33.4 g/dL (32.0-36.0); Mean Corpuscular Volume 71.6 fL (80.0-100.0); Neutrophils % (auto) 83.5 % (37.0-80.0); Platelet Count (auto) 188 10^3/uL (140-450); Red Blood Cells 3.73 10^6/uL (4.0-5.20); White Blood Cell 6.4 10^3/uL (4.4-10.8)
[2021-02-22 08:49] LABS: Potassium 3.4 mmol/L (3.5-5.1)
[2021-02-22 08:56] LABS: BUN/Creatinine Ratio 14.8; Calcium 7.8 mg/dL (8.5-10.1)
[2021-02-22 09:00] VITALS: BP 100/57
[2021-02-22 10:26] LABS: Folate (Folic Acid) 6.85 ng/mL (5.38-24)
[2021-02-22 17:00] VITALS: BP 100/54
[2021-02-22 17:10] VITALS: BP 98/67
== END 2021-02-22 18:07 | disposition home or self-care (01) | DRG 743 ==
LOC: SUR 06:23 → UNDOADMIN 06:24 → OVERFLOW 06:24 → WEST WING 11:47 → OVERFLOW 11:47
PROVIDERS: ADMIT Specialist; ATTEND Specialist
PROC: 0UT90ZL Resection of Uterus, Supracervical, Open Approach (ICD-10-PCS; principal; 2021-02-19 07:50)
PROC: 30233N1 Transfusion of Nonautologous Red Blood Cells into Peripheral Vein, Percutaneous Approach (ICD-10-PCS; 2021-02-20)
DX: D25.9 Leiomyoma of uterus, unspecified (principal); N92.0 Excessive and frequent menstruation with regular cycle; D64.9 Anemia, unspecified; E66.9 Obesity, unspecified; N80.0 Endometriosis of uterus; Z20.822 Contact with and (suspected) exposure to COVID-19; Z68.34 Body mass index [BMI] 34.0-34.9, adult; Z83.3 Family history of diabetes mellitus
CPT/HCPCS: 36415; 80048; 80053; 82607; 82746; 83540; 83550; 83735; 84100; 84443; 85014; 85018; 85025; 85610; 85730; 86160; 86850; 86900; 86901; 86920; G0378; J0131; J0330; J0690; J1100; J1885; J2250; J2405

== ENCOUNTER → 2021-03-04 | Outpatient (CLI) | payer BC, MEDICAID ==
[2021-03-04 12:10] LABS: Basophils # (auto) 0.1 10 ^3/uL (0-0.2); Eosinophils # (auto) 0.4 10 ^3/uL (0-0.8); Mean Corpuscular Volume 73.8 fL (80.0-100.0); Nucleated Red Blood Cells % 0.1 %
[2021-03-04 12:13] LABS: Basophils % (auto) 1.2 % (0.0-2.0); Eosinophils % (auto) 5.7 % (0.0-7.0); Hematocrit 37.2 % (36.0-46.0); Hemoglobin 11.9 g/dL (12.2-16.2); Lymphocytes # (auto) 1.8 10 ^3/uL (0.4-5.4); Lymphocytes % (auto) 27.1 % (10.0-50.0); Mean Corpuscular Hemoglobin 23.6 pg (28.0-32.0); Monocytes # (auto) 0.4 10 ^3/uL (0-1.3); Monocytes % (auto) 5.3 % (0.0-12.0); Neutrophils # (auto) 4.1 10 ^3/uL (1.6-8.6); Neutrophils % (auto) 60.7 % (37.0-80.0); Platelet Count (auto) 277 10^3/uL (140-450); Red Blood Cells 5.04 10^6/uL (4.0-5.20); White Blood Cell 6.8 10^3/uL (4.4-10.8)
[2021-03-04 12:14] LABS: Red Cell Distribution Width 27.2 % (11.8-14.3)
== END | disposition home or self-care (01) ==
LOC: LAB 11:59
PROVIDERS: ATTEND Specialist
DX: D64.9 Anemia, unspecified (principal)
CPT/HCPCS: 36415; 85025

== ENCOUNTER 2025-06-17 16:54 | Emergency (ER) | payer BC, MEDICAID ==
[~2025-06-17] VITALS: Ht 162.6 cm; Wt 61.3 kg
[~2025-06-17 16:54] MED LIST changes: +ACET-1341 PO; -FERR-20 PO; +FERR325T24 PO; +IBUP-1454 PO; -IBUP600T27 PO; -[UNRECOGNIZED DRUG - CODE] PO
[2025-06-17 17:23] VITALS: BP 114/76; PULSE 86; RESP 16; TEMP 97.9; O2SAT 97
[2025-06-17] MEDS: SODIUM CHLORIDE 0.9% 1,000 ML IV ONE (17:31)
[2025-06-17 17:46] LABS: Hematocrit 42.7 % (36.0-46.0); Hemoglobin 14.4 g/dL (12.2-16.2); Mean Corpuscular Hemoglobin 31.2 pg (28.0-32.0); Mean Corpuscular Volume 92.6 fL (80.0-100.0); Nucleated Red Blood Cells % 0.2 %
[2025-06-17 18:07] LABS: Potassium 3.8 mmol/L (3.5-5.1); Sodium 143 mmol/L (136-145)
[2025-06-17 18:08] LABS: Anion Gap 11 (5-15); Carbon Dioxide 25 mmol/L (20-31)
[2025-06-17 18:10] LABS: Urine Protein, UAD Negative (Negative)
[2025-06-17 18:10] LABS: Chloride 107 mmol/L (98-107)
[2025-06-17 18:13] LABS: BUN/Creatinine Ratio 19.4 (10.0-20.0); Blood Urea Nitrogen 12 mg/dL (9-23); Glucose 88 mg/dL (74-106)
--- NOTE | 2025-06-17 18:13 | DVH ---
EXAM: XY CHEST TWO VIEWS ROUTINE CLINICAL HISTORY: weakness COMPARISON: None TECHNIQUE: Frontal and lateral view of the chest was obtained FINDINGS: Lines and Tubes: None Lungs: No focal consolidation. Pleura: No effusion. No pneumothorax. Cardiomediastinal contours: Unremarkable Bones: No acute osseous abnormality. IMPRESSION: No acute cardiopulmonary disease.
[2025-06-17 18:25] LABS: Calcium 9.9 mg/dL (8.7-10.4)
--- NOTE | 2025-06-17 19:46 | ED.PDOC ---
History of Present Illness HPI Comments 45-year-old female presents with a chief complaint of SOB x 3 days, body weakness x 2 weeks, and associated diaphoresis. Patient reports that for the past 2 weeks she has been feeling increasingly weak like her body is fatigued. Patient mentions that she has now developed worsening SOB over the past 3 days. Upon arrival to ER, patient was diaphoretic. Patient denies any nausea, vomiting, diarrhea, fever, or abdominal pain. PSHx Gastric Sleeve, Cholecystectomy, Hysterectomy. Chief Complaint: General Weakness Time Seen by MD: 19:40 Primary Care Provider: BRAVO Reviewed Notes: Nurses Notes, Medications, Allergies Allergies: Coded Allergies: NO KNOWN ALLERGIES (Unverified , 02/16/21) Home Meds Reported Medications Acetaminophen (EQ ACETAMINOPHEN EXTRA ST) 500 Mg Tab, 500 MG PO PRN, TAB 02/16/21 Ibuprofen (Ibuprofen) 600 Mg Tab, 600 MG PO PRN, MG 0 Refills 02/16/21 Ferrous Sulfate (Ferrous Sulfate) 325 Mg Tab, 325 MG PO BIDWM for 30 Days, MG 02/16/21 Information Source: Patient Mode of Arrival: Ambulatory Severity: Moderate Timing: Days Duration: Since onset Prehospital treatment: None Past Medical History PAST MEDICAL HISTORY: Denies Surgical History: Cholecystectomy LEAD HANDLER History: No Pertinent LEAD HANDLER History Family History Family History: Family hx of DM, Family hx of Cancer, Family hx of heart vargas Social History Smoker: Cigarettes Alcohol: Occasionally Drugs: Denies Drug Use Lives In: Home Constitutional: reports: diaphoresis, weakness; denies: chills, fatigue, fever, malaise, sweats, others EENTM: denies: blurred vision, double vision, ear bleeding, ear discharge, ear drainage, ear pain, ear ringing, eye pain, eye redness, hearing loss, mouth pain, mouth swelling, nasal discharge, nose bleeding, nose congestion, nose gregory n, photophobia, tearing, throat pain, throat swelling, voice changes, others Respiratory: reports: shortness of breath; denies: cough, hemoptysis, orthopnea, SOB at rest, SOB with excertion, stridor, wheezing, others Cardiovascular: denies: chest pain, dizzy spells, diaphoresis, Dyspnea on exertion, edema, irregular heart beat, left arm pain, lightheadedness, palpitations, PND, syncope, others Gastrointestinal: denies: abdomen distended, abdominal pain, blood streaked bowels, constipated, diarrhea, dysphagia, difficulty swallowing, hematemesis, me werner, nausea, poor appetite, poor fluid intake, rectal bleeding, rectal pain, vomiting, others Genitourinary: denies: abnormal vagina bleeding, burning, dyspareunia, dysuria, flank pain, frequency, hematuria, incontinence, pain, , vagina discharge, urgency, others Neurological: denies: dizziness, fainting, headache, left sided numbness, left sided weakness, numbness, paresthesia, pre-existing deficit, right sided numbness, right sided weakness, seizure, speech problems, tingling, tremors, weakness, others Musculoskeletal: denies: back pain, gout, joint pain, joint swelling, muscle pain, muscle stiffness, neck pain, others Integumetry: denies: bruises, change in color, change in hair/nails, dryness, laceration, lesions, lumps, rash, wounds, others Allergic/Immunocompromised: denies: Difficulty Healing, Frequent Infections, Hives, Itching, others Hematologic/Lymphatic: denies: anemia, blood clots, easy bleeding, easy bruising, swollen glands, others Endocrine: denies: excessive hunger, excessive sweating, excessive thirst, excessive urination, flushing, intolerance to cold, intolerance to heat, unexplained weight gain, unexplained weight loss, others Psychiatric: denies: anxiety, bipolar disorder, depression, hopeless, panic disorder, schizophrenia, sleepless, suicidal, others All Other Systems: Reviewed and Negative Physical Exam General Appearance: Mild Distress HEENT: Normal ENT Inspection, Pharynx Normal, TMs Normal Neck: Full Range of Motion, Non-Tender, Normal, Normal Inspection Respiratory: Chest Non-Tender, Lungs Clear, No Accessory Muscle Use, No Respiratory Distress, Normal Breath Sounds Cardiovascular: No Edema, No JVD, No Murmur, No Gallop, Normal Peripheral Pulses, Regular Rate/Rhythm Breast Exam: Deferred Gastrointestinal: No Organomegaly, Non Tender, No Pulsatile Mass, Normal Bowel Sounds, Soft Genitalia: Deferred Pelvic: Deferred Rectal: Deferred Extremities: No calf tenderness, Normal capillary refill, No pedal edema Musculoskeletal : Apperance: Normal Neurologic: Alert, certified registered dental assistant II-XII nml as Tested, Motor Weakness, Normal Affect, Normal Mood, No Sensory Deficits Cerebellar Function: Normal Reflexes: Normal Skin: Dry, Normal Color, Warm Lymphatic: No Adenopathy Was a procedure done? Was a procedure done?: No Differential Dx Considerations may include: Fatigue, anemia, generalized weakness, electrolyte imbalance X-Ray, Labs, Meds, VS Vital Signs Date Time Temp Pulse Resp B/P (MAP) Pulse Ox O2 Delivery O2 Flow Rate FiO2 06/17/25 17:23 86 16 97 Room Air* 0 21 06/17/25 17:23 97.9 86 16 114/76 (89) 97 97.9 06/17/25 17:02 98.1 103 18 145/91 (109) 100 98.1 Lab Test 06/17/25 17:34 06/17/25 17:11 Range/Units White Blood Count 5.1 4.4-10.8 10^3/uL Red Blood Count 4.61 4.0-5.20 10^6/uL Hemoglobin 14.4 12.2-16.2 g/dL Hematocrit 42.7 36.0-46.0 % Mean Corpuscular Volume 92.6 80.0-100.0 fL Mean Corpuscular Hemoglobin 31.2 28.0-32.0 pg Mean Corpuscular Hemoglobin Concent 33.7 32.0-36.0 g/dL Red Cell Distribution Width 13.5 11.8-14.3 % Platelet Count 183 140-450 10^3/uL Mean Platelet Volume 9.2 6.9-10.8 fL Neutrophils (%) (Auto) 56.3 37.0-80.0 % Lymphocytes (%) (Auto) 34.1 10.0-50.0 % Monocytes (%) (Auto) 7.2 0.0-12.0 % Eosinophils (%) (Auto) 1.9 0.0-7.0 % Basophils (%) (Auto) 0.5 0.0-2.0 % Neutrophils # (Auto) 2.9 1.6-8.6 10 ^3/uL Lymphocytes # (Auto) 1.7 0.4-5.4 10 ^3/uL Monocytes # (Auto) 0.4 0-1.3 10 ^3/uL Eosinophils # (Auto) 0.1 0-0.8 10 ^3/uL Basophils # (Auto) 0 0-0.2 10 ^3/uL Nucleated Red Blood Cells 0.2 % D-Dimer, Quantitative 0.30 0.0-0.49 mg/L FEU Sodium Level 143 136-145 mmol/L Potassium Level 3.8 3.5-5.1 mmol/L Chloride Level 107 98-107 mmol/L Carbon Dioxide Level 25 20-31 mmol/L Anion Gap 11 5-15 Blood Urea Nitrogen 12 9-23 mg/dL Creatinine 0.62 0.550-1.02 mg/dL Glomerular Filtration Rate Calc 111 >90 mL/min BUN/Creatinine Ratio 19.4 10.0-20.0 Serum Glucose 88 74-106 mg/dL Calcium Level 9.9 8.7-10.4 mg/dL Urine Color Yellow Yellow Urine Clarity Clear Clear Urine pH 6.0 5.0-9.0 Urine Specific Sentinel 1.016 1.001-1.035 Urine Protein Negative Negative Urine Ketones Negative Negative Urine Blood Negative Negative /uL Urine Nitrite Negative Negative Urine Bilirubin Negative Negative Urine Urobilinogen Normal Negative mg/dL Urine Leukocyte Esterase Negative Negative /uL Urine RBC <1 0 - 4 /hpf Urine Microscopic WBC 1 0-5 /HPF Urine Squamous Epithelial Cells Few <5 /hpf Urine Bacteria None seen None Seen /hpf Urine Glucose Normal Normal mg/dL Current Medications Medications (Trade) Dose Ordered Sig/Catie Route Start Time Stop Time Status Last Admin Sodium Chloride 1,000 ml @ 1,000 mls/hr Q1H ONCE IV 06/17/25 17:15 06/17/25 18:23 DC 06/17/25 17:31 Time of 1ST Reevaluation: 20:11 Reevaluation 1ST: Unchanged Patient Education/Counseling: Diagnosis, Treatment, Prognosis, Need For Follow Up Family Education/Counseling: No Family Present SEPSIS Sepsis Screen Date sepsis recognized/suspect: Jun 17, 2025 Time Sepsis recognized/suspect: 1722 Recent Procedure: No On Antibiotic Therapy: No Respiratory Rate >20: No Heart Rate >90: No Temp<36 C (96.8 F) or >38.3 C: No SBP <90 or MAP <65 mmHG: No New Acute Mental Status Change: No Is the patient on CPAP, BIPAP,: No Physician Orders Chest Two Views Routine (06/17/25 17:02) Heplock Iv (06/17/25 17:02) Flow Coordinator (06/17/25 17:02) Blood Pressure (06/17/25 17:02) Pulse Oximetry (06/17/25 17:02) Electrocardigram (06/17/25 17:02) Vital Signs Date Time Temp Pulse Resp B/P (MAP) Pulse Ox O2 Delivery O2 Flow Rate FiO2 06/17/25 17:23 86 16 97 Room Air* 0 21 06/17/25 17:23 97.9 86 16 114/76 (89) 97 97.9 06/17/25 17:02 98.1 103 18 145/91 (109) 100 98.1 Laboratory Tests Test 06/17/25 17:34 White Blood Count 5.1 10^3/uL (4.4-10.8) Medications Medications Dose Ordered Sig/Catie Route Start Time Stop Time Status Last Admin Dose Admin Sodium Chloride 1,000 ml @ 1,000 mls/hr Q1H ONCE IV 06/17/25 17:15 06/17/25 18:23 DC 06/17/25 17:31 Departure 1 Departure Time of Disposition: 20:12 Impression: Primary Impression: Viral syndrome Additional Impression: Fatigue Qualified Codes: R53.83 - Other fatigue Disposition: 01 HOME / SELF CARE / HOMELESS Condition: Fair Discharged With: Self Critical Care Note Critical Care Time?: No Stability Stability form required: No Heart Score Heart Score: Heart Score Response (Comments) Value History N/A 0 EKG N/A 0 Age N/A 0 Risk Factors N/A 0 Troponin N/A 0 Total 0 I personally scribed for POONAM VILLARREAL MD ([email or web address]) on 06/17/25 at 19:46. Electronically submitted by Quintin Rivera ([email or web address]). POONAM VILLARREAL MD Jun 17, 2025 19:46
== END 2025-06-17 20:33 | disposition home or self-care (01) ==
LOC: ER 16:54
DX: B34.9 Viral infection, unspecified (principal); R53.83 Other fatigue; F17.210 Nicotine dependence, cigarettes, uncomplicated; Z90.49 Acquired absence of other specified parts of digestive tract
CPT/HCPCS: 36415; 71046; 80048; 81001; 85025; 85379; 96360; 99284; J7030